=== PATIENT | male | born 1955 | race Caucasian/White ===

== ENCOUNTER 2018-02-16 13:27 | Outpatient (CLI) | payer BC ==
[~2018-02-16] VITALS: Ht 157.5 cm; Wt 46.8 kg
[2018-02-16 13:50] VITALS: BP 117/63; PULSE 67; TEMP 98.1
[2018-02-16] MEDS ORDERED: NATURAL IRON65 MG PO (14:00)
[2018-02-16] MEDS ORDERED: OXY IR5 MG PO (14:00)
[2018-02-16] MEDS ORDERED: TYLENOL 325MG325 MG PO (14:00)
[2018-02-16] MEDS ORDERED: NORVASC2.5 MG PO (14:01)
[2018-02-16] MEDS ORDERED: LOPRESSOR 225 MG/TAB PO (14:01)
== END 2018-02-16 14:13 | disposition home or self-care (01) ==
LOC: EUO 13:27
DX: C13.2 Malignant neoplasm of posterior wall of hypopharynx (principal)

== ENCOUNTER 2018-02-28 09:55 | Day surgery (SDC) | payer BC ==
[~2018-02-28] VITALS: Ht 157.5 cm; Wt 46.2 kg
[~2018-02-28 09:55] MED LIST: LOPRESSOR 225 MG/TAB PO; NATURAL IRON65 MG PO; NORVASC2.5 MG PO; OXY IR5 MG PO; TYLENOL 325MG325 MG PO
[2018-02-28 10:17] VITALS: BP 134/81; PULSE 71; TEMP 98.8
[2018-02-28] MEDS ORDERED: OXYCODONE H5 MG/5 ML PEG ×3 (10:55→13:45)
[2018-02-28] MEDS ORDERED: LOPRESSOR 225 MG/TAB PEG (10:58)
[2018-02-28] MEDS ORDERED: NORVASC2.5 MG PEG (10:59)
[2018-02-28] MEDS ORDERED: FERROUS SU220 MG/5 M PEG (11:05)
[2018-02-28] MEDS ORDERED: TYLENOL 500MG500 MG PEG (11:10)
[2018-02-28] MEDS ORDERED: LEADER CLE17 GM/Dose PEG (11:10)
[2018-02-28] MEDS ORDERED: ZOFRAN ODT8 MG PO (11:11)
[2018-02-28] MEDS ORDERED: MAGNESIUM500 MG PEG (11:12)
[2018-02-28] MEDS ORDERED: CENTRUM SILVER1 TAB PEG (11:12)
[2018-02-28] MEDS ORDERED: MILK THISTLE150 MG PEG (11:13)
[2018-02-28] MEDS ORDERED: B-121000 MCG PEG (11:13)
[2018-02-28] MEDS ORDERED: SALT SUPPLEMENT PEG (11:14)
[2018-02-28] MEDS ORDERED: PERIDEX (CHLOR480 ML MM (11:15)
[2018-02-28 13:25] VITALS: BP 128/73; PULSE 67
[2018-02-28 13:40] VITALS: BP 121/69; PULSE 60
[2018-02-28 13:55] VITALS: BP 141/74; PULSE 68
== END 2018-02-28 14:10 | disposition home or self-care (01) ==
LOC: SDCO 09:55
DX: C13.9 Malignant neoplasm of hypopharynx, unspecified (principal); I10 Essential (primary) hypertension; D64.9 Anemia, unspecified; Z85.21 Personal history of malignant neoplasm of larynx; Z93.0 Tracheostomy status; Z80.0 Family history of malignant neoplasm of digestive organs; Z80.1 Family history of malignant neoplasm of trachea, bronchus and lung
CPT/HCPCS: C1788; J0690; J1644; J1885; J2250; J2405; J2704; J3010; J7120

== ENCOUNTER 2018-03-07 13:48 | Outpatient (RCR) | payer BC ==
[~2018-03-07 13:48] MED LIST changes: +B-121000 MCG PEG; +CENTRUM SILVER1 TAB PEG; +FERROUS SU220 MG/5 M PEG; +LEADER CLE17 GM/Dose PEG; +LOPRESSOR 225 MG/TAB PEG; +MAGNESIUM500 MG PEG; +MILK THISTLE150 MG PEG; +NORVASC2.5 MG PEG; +OXYCODONE H5 MG/5 ML PEG; +PERIDEX (CHLOR480 ML MM; +SALT SUPPLEMENT PEG; +TYLENOL 500MG500 MG PEG; +ZOFRAN ODT8 MG PO
[2018-04-01] MEDS ORDERED: PHENERGAN 25 TA25 MG PEG (15:11)
[2018-04-01] MEDS ORDERED: FENTANYL 25 MCG TD (15:11)
[2018-04-01] MEDS ORDERED: VITAMIN B-6100 MG PEG (15:18)
[2018-04-01] MEDS ORDERED: COMPAZINE 110 MG/TAB PEG (15:21)
[2018-04-01] MEDS ORDERED: PRILOSEC 20MG20 MG PEG (15:22)
[2018-04-01] MEDS ORDERED: CARAFATE S1 GM/10 ML PEG (15:23)
[2018-04-01] MEDS ORDERED: NATURAL SENNA8.6 MG PEG (15:24)
[2018-04-07] MEDS ORDERED: CLEOCIN 751500 MG/10 PO (07:29)
[2018-04-07] MEDS ORDERED: THERMOTABS 2871 TA1 PO (09:16)
[2018-04-07] MEDS ORDERED: IPRATROPIUM BROM3 M1 IH (09:29)
== END 2018-06-05 | disposition home or self-care (01) ==
LOC: WSST
DX: C13.8 Malignant neoplasm of overlapping sites of hypopharynx (principal)

== ENCOUNTER 2018-04-01 14:21 | Inpatient (IN) | payer BC ==
[~2018-04-01] VITALS: Ht 160 cm; Wt 50.2 kg
[2018-04-01 14:54] LABS: ARTERIAL BLD GAS O2 SATURATION 85.5 % (92-100); ARTERIAL BLD GAS TCO2 CT 28.1; ARTERIAL BLOOD GAS BASE EXCESS 3.3 (-2-2); ARTERIAL BLOOD GAS PCO2 37.2 mmHg (35-45); ARTERIAL BLOOD GAS pH 7.48 (7.35-7.45)
[2018-04-01 14:55] LABS: ARTERIAL BLOOD GAS PO2 48.1 mmHg (80-100)
[2018-04-01 15:00] LABS: MEAN CELL VOLUME 83 fl (80.0-100.0); MEAN CORPUSCULAR HGB CONC 33 g/dl (33.0-37.0); MEAN PLATELET VOLUME 7.8 fl (7.4-10.4); PLATELET COUNT 244 K/mm3 (130-400); RED BLOOD COUNT 2.61 M/mm3 (4.20-5.60)
[2018-04-01 15:05] LABS: HEMATOCRIT 21.6 % (42.0-52.0); HEMOGLOBIN 7.2 g/dl (13.5-18.0); MEAN CORPUSCULAR HEMOGLOBIN 28 pg (27.0-31.0)
[2018-04-01 15:10] LABS: BILIRUBIN,TOTAL 0.3 mg/dL (0.0-1.0); CALCIUM 8.8 mg/dL (8.4-10.2); CREATININE, serum 0.43 mg/dL (0.66-1.25); POTASSIUM 3.9 mmol/L (3.4-5.0); TOTAL PROTEIN 6.2 gm/dL (6.4-8.2)
[2018-04-01] MEDS ORDERED: FENTANYL 25 MCG TD (15:11)
[2018-04-01] MEDS ORDERED: PHENERGAN 25 TA25 MG PEG (15:11)
[2018-04-01 15:16] LABS: BAND 39 % (0-10); HYPOCHROMIA 3+; LYMPHOCYTE 2 % (20.0-51.0); METAMYELOCYTE 4 % (0-0); NEUTROPHILS 49 % (42.0-75.2); PLATELET ESTIMATE NORMAL (NORMAL)
[2018-04-01] MEDS ORDERED: VITAMIN B-6100 MG PEG (15:18)
[2018-04-01] MEDS ORDERED: COMPAZINE 110 MG/TAB PEG (15:21)
[2018-04-01] MEDS ORDERED: PRILOSEC 20MG20 MG PEG (15:22)
[2018-04-01] MEDS ORDERED: CARAFATE S1 GM/10 ML PEG (15:23)
[2018-04-01] MEDS ORDERED: NATURAL SENNA8.6 MG PEG (15:24)
[2018-04-01 20:00] VITALS: BP 90/51; PULSE 107; TEMP 98.7
[2018-04-01 20:23] VITALS: BP 130/110; PULSE 116; TEMP 99.9
[2018-04-01 20:32] LABS: CALCIUM 8.2 mg/dL (8.4-10.2); CREATININE, serum 0.42 mg/dL (0.66-1.25); POTASSIUM 3.9 mmol/L (3.4-5.0)
[2018-04-02] VITALS (15 sets, daily range): BP systolic 97–157; BP diastolic 64–88; PULSE 77–100; TEMP 98.3–99.3
[2018-04-02 00:26] LABS: CALCIUM 8.1 mg/dL (8.4-10.2); CREATININE, serum 0.41 mg/dL (0.66-1.25); POTASSIUM 3.9 mmol/L (3.4-5.0)
[2018-04-02 08:41] LABS: ALANINE AMINOTRANSFERASE 24 U/L (21-72); ALBUMIN 2.5 gm/dL (3.5-5.0); ALKALINE PHOSPHATASE 71 U/L (50-136); ANION GAP 7 mmol/L (7-16); AST,SGOT 20 U/L (15-37); BILIRUBIN,TOTAL < 0.1 mg/dL (0.0-1.0); BLOOD UREA NITROGEN 14 mg/dL (9-20); CALCIUM 8.2 mg/dL (8.4-10.2); CARBON DIOXIDE 28 mmol/L (22-30); CHLORIDE 92 mmol/L (98-107); CREATININE, serum 0.34 mg/dL (0.66-1.25); GLUCOSE 95 mg/dL (74-106); POTASSIUM 3.8 mmol/L (3.4-5.0); SODIUM 128 mmol/L (137-145); TOTAL PROTEIN 5.1 gm/dL (6.4-8.2)
[2018-04-02 18:32] LABS: HEMATOCRIT 24.7 % (42.0-52.0); HEMOGLOBIN 8.1 g/dl (13.5-18.0)
[2018-04-03 03:26] VITALS: BP 139/80; PULSE 87; TEMP 98.6
[2018-04-03 09:50] VITALS: BP 150/74; PULSE 82; TEMP 99.1
[2018-04-03 11:51] VITALS: BP 144/78; PULSE 79; TEMP 99.3
[2018-04-03 16:27] VITALS: BP 142/71; PULSE 70; TEMP 98.2
[2018-04-04] VITALS (7 sets, daily range): BP systolic 136–159; BP diastolic 68–81; PULSE 66–96; TEMP 97.7–99.9
[2018-04-04 07:09] LABS: CALCIUM 9.2 mg/dL (8.4-10.2); CREATININE, serum 0.3 mg/dL (0.66-1.25); POTASSIUM 3.2 mmol/L (3.4-5.0)
[2018-04-05 03:32] VITALS: BP 145/76; PULSE 89; TEMP 98.1
[2018-04-05 07:26] LABS: ANION GAP 12 mmol/L (7-16); BLOOD UREA NITROGEN 15 mg/dL (9-20); CALCIUM 9.1 mg/dL (8.4-10.2); CARBON DIOXIDE 31 mmol/L (22-30); CHLORIDE 92 mmol/L (98-107); CREATININE, serum 0.33 mg/dL (0.66-1.25); GLUCOSE 99 mg/dL (74-106); POTASSIUM 3.3 mmol/L (3.4-5.0); SODIUM 135 mmol/L (137-145)
[2018-04-05 08:06] VITALS: BP 155/77; PULSE 75; TEMP 98.1
[2018-04-05 12:25] VITALS: BP 140/73; PULSE 77; TEMP 98.2
[2018-04-05 16:05] VITALS: BP 148/77; PULSE 84; TEMP 98.4
[2018-04-05 19:58] VITALS: BP 148/83; PULSE 87; TEMP 99.3
[2018-04-05 23:33] VITALS: BP 141/61; PULSE 88; TEMP 98.9
[2018-04-06 05:52] VITALS: BP 148/79; PULSE 85; TEMP 98.8
[2018-04-06 07:58] VITALS: BP 145/68; PULSE 83; TEMP 98.6
[2018-04-06 11:36] LABS: CALCIUM 9.1 mg/dL (8.4-10.2); CREATININE, serum 0.29 mg/dL (0.66-1.25); POTASSIUM 3.3 mmol/L (3.4-5.0)
[2018-04-06 13:06] VITALS: BP 154/81; PULSE 87; TEMP 98
[2018-04-06 16:29] VITALS: BP 150/69; PULSE 85; TEMP 98.3
[2018-04-06 19:54] VITALS: BP 126/72; PULSE 86; TEMP 97.8
[2018-04-07 00:23] VITALS: BP 133/76; PULSE 80; TEMP 98.9
[2018-04-07 03:54] VITALS: BP 129/82; PULSE 87; TEMP 98.6
[2018-04-07 06:46] LABS: MEAN CELL VOLUME 84 fl (80.0-100.0); MEAN CORPUSCULAR HGB CONC 33 g/dl (33.0-37.0); MEAN PLATELET VOLUME 8.6 fl (7.4-10.4); PLATELET COUNT 173 K/mm3 (130-400); RED BLOOD COUNT 3.11 M/mm3 (4.20-5.60); REDCELL DISTRIBUTION WIDTH-CV 15.5 % (11.5-14.5)
[2018-04-07 06:48] LABS: HEMATOCRIT 26.1 % (42.0-52.0); HEMOGLOBIN 8.6 g/dl (13.5-18.0); MEAN CORPUSCULAR HEMOGLOBIN 28 pg (27.0-31.0)
[2018-04-07 07:16] LABS: CALCIUM 8.7 mg/dL (8.4-10.2); CREATININE, serum 0.31 mg/dL (0.66-1.25); MAGNESIUM 1.8 mg/dL (1.6-2.3); POTASSIUM 4.3 mmol/L (3.4-5.0)
[2018-04-07] MEDS ORDERED: CLEOCIN 751500 MG/10 PO (07:29)
[2018-04-07 07:56] VITALS: BP 139/87; PULSE 86; TEMP 98.2
[2018-04-07 08:44] LABS: BAND 30 % (0-10); EOSINOPHIL 1 % (0-4); LYMPHOCYTE 12 % (20.0-51.0); METAMYELOCYTE 1 % (0-0); NEUTROPHILS 56 % (42.0-75.2); PLATELET ESTIMATE NORMAL (NORMAL)
[2018-04-07] MEDS ORDERED: THERMOTABS 2871 TA1 PO (09:16)
[2018-04-07] MEDS ORDERED: IPRATROPIUM BROM3 M1 IH (09:29)
== END 2018-04-07 14:29 | disposition home health service (06) | DRG 177 ==
LOC: COL.ER 14:21 → ICU 15:30 → MEDICAL 15:30
PROVIDERS: Family Medicine; Internal Medicine; Nurse Practitioner Family; Orthopaedic Surgery; Otolaryngology; Physician Assistant
PROC: 0B21XFZ Change Tracheostomy Device in Trachea, External Approach (ICD-10-PCS; principal; 2018-04-04 13:30)
DX: J69.0 Pneumonitis due to inhalation of food and vomit (principal); E43 Unspecified severe protein-calorie malnutrition; E87.1 Hypo-osmolality and hyponatremia; Z68.1 Body mass index [BMI] 19.9 or less, adult; J15.211 Pneumonia due to Methicillin susceptible Staphylococcus aureus; J15.3 Pneumonia due to streptococcus, group B; C14.0 Malignant neoplasm of pharynx, unspecified; I10 Essential (primary) hypertension; Z87.891 Personal history of nicotine dependence; Z93.0 Tracheostomy status; D64.9 Anemia, unspecified; E87.6 Hypokalemia
CPT/HCPCS: 99232-AI; 99233-AI; 99239; A7520; J0456; J0692; J0696; J1644; J1650; J2543; J3370; J3480; J7030; J7050; P9016

== ENCOUNTER 2018-04-09 08:08 | Emergency (ER) | payer BC ==
[~2018-04-09] VITALS: Ht 157.5 cm; Wt 45.6 kg
[~2018-04-09 08:08] MED LIST changes: +CARAFATE S1 GM/10 ML PEG; +CLEOCIN 751500 MG/10 PO; +COMPAZINE 110 MG/TAB PEG; +FENTANYL 25 MCG TD; +IPRATROPIUM BROM3 M1 IH; +NATURAL SENNA8.6 MG PEG; +PHENERGAN 25 TA25 MG PEG; +PRILOSEC 20MG20 MG PEG; +THERMOTABS 2871 TA1 PO; +VITAMIN B-6100 MG PEG
[2018-04-09 08:12] VITALS: BP 134/71; TEMP 98.1
[2018-04-09 09:48] VITALS: PULSE 80
== END 2018-04-09 09:48 | disposition home or self-care (01) ==
LOC: COL.ER 08:08
DX: J95.03 Malfunction of tracheostomy stoma (principal); C14.0 Malignant neoplasm of pharynx, unspecified; D64.9 Anemia, unspecified; E87.1 Hypo-osmolality and hyponatremia